=== PATIENT | female | born 1975 | race Caucasian/White ===

== ENCOUNTER → 2017-03-08 | Outpatient (REF) | payer BC, OTHER ==
[2017-03-08 13:42] LABS: MEAN CORPUSCULAR HEMOGLOBIN 38.3 pg (27.0-33.0); MEAN CORPUSCULAR VOLUME 104.8 fl (80.0-96.0); WHITE BLOOD COUNT 4.1 K/mm3 (4.0-10.0)
[2017-03-08 14:00] LABS: MEAN CORPUSCULAR HGB CONC 36.4 g/dl (32.0-36.5)
[2017-03-08 14:23] LABS: FREE T4 0.83 NG/DL (0.76-1.46)
[2017-03-08 14:35] LABS: LUTEINIZING HORMONE 1.4 mIU/mL
[2017-03-08 14:36] LABS: FOLLICLE STIMULATING HORMONE 3.1 mIU/mL
== END ==
LOC: M LAB REF 12:15
PROVIDERS: ATTEND Obstetrics & Gynecology
DX: N92.1 Excessive and frequent menstruation with irregular cycle (principal)

== ENCOUNTER → 2019-06-16 | Outpatient (CLI) | payer BC, OTHER ==
[2019-06-16 08:51] LABS: BASO % 0.4 % (0.0-1.0); EOS # 0.1 10^3/uL (0.0-0.5); EOS % 1.8 % (0.0-3.0); HEMATOCRIT 36.1 % (36.0-47.0); HEMOGLOBIN 12.9 g/dl (12.0-15.5); LYMPH # 0.8 10^3/uL (1.5-5.0); LYMPH % 28.8 % (24.0-44.0); MEAN CORPUSCULAR HEMOGLOBIN 35.3 pg (27.0-33.0); MEAN CORPUSCULAR HGB CONC 35.7 g/dl (32.0-36.5); MEAN CORPUSCULAR VOLUME 98.9 fl (80.0-96.0); MONO # 0.3 10^3/uL (0.0-0.8); MONO % 9.8 % (0.0-5.0); NEUTROPHILS # 1.7 10^3/uL (1.5-8.5); NEUTROPHILS % 59.2 % (36.0-66.0); PLATELET COUNT, AUTOMATED 123 10^3/uL (150-450); RED BLOOD COUNT 3.65 10^6/uL (4.00-5.40); WHITE BLOOD COUNT 2.9 10^3/uL (4.0-10.0)
[2019-06-16 09:19] LABS: ALBUMIN 3.9 GM/DL (3.2-5.2); ALT/SGPT 17 U/L (12-78); BILIRUBIN,TOTAL 2.2 MG/DL (0.2-1.0); BLOOD UREA NITROGEN 16 MG/DL (7-18); CALCIUM LEVEL 8.8 MG/DL (8.5-10.1); CARBON DIOXIDE LEVEL 28 MEQ/L (21-32); CHLORIDE LEVEL 107 MEQ/L (98-107); CHOLESTEROL LEVEL 201 MG/DL (<200); CHOLESTEROL RISK RATIO 2.208 (<5); CREATININE FOR GFR 0.84 MG/DL (0.55-1.30); GLOMERULAR FILTRATION RATE > 60.0 (>58); GLUCOSE, FASTING 87 MG/DL (70-100); HDL CHOLESTEROL 91 MG/DL (>40); LDL CHOLESTEROL 86 MG/DL (<100); NON-HDL-C 110 MG/DL; POTASSIUM SERUM 4.1 MEQ/L (3.5-5.1); SODIUM LEVEL 141 MEQ/L (136-145); TOTAL PROTEIN 7.1 GM/DL (6.4-8.2); TRIGLYCERIDES LEVEL 118 MG/DL (<150)
== END ==
LOC: M LAB 08:03
PROVIDERS: ATTEND Family Medicine
DX: Z00.00 Encounter for general adult medical examination without abnormal findings (principal)

== ENCOUNTER 2019-08-08 22:56 | Emergency (ER) | payer BC, OTHER ==
[~2019-08-08] VITALS: Ht 167.6 cm; Wt 63.6 kg
[2019-08-08] MEDS ORDERED: ALLE180T33 PO (23:03)
[2019-08-08] MEDS ORDERED: TOPI25TA10 (23:03)
[2019-08-08 23:14] LABS: BASO % 0.3 % (0.0-1.0); EOS # 0.1 10^3/uL (0.0-0.5); EOS % 1.7 % (0.0-3.0); HEMATOCRIT 36.1 % (36.0-47.0); HEMOGLOBIN 13.1 g/dl (12.0-15.5); LYMPH # 2.4 10^3/uL (1.5-5.0); LYMPH % 40.2 % (24.0-44.0); MEAN CORPUSCULAR HEMOGLOBIN 35.8 pg (27.0-33.0); MEAN CORPUSCULAR HGB CONC 36.3 g/dl (32.0-36.5); MEAN CORPUSCULAR VOLUME 98.6 fl (80.0-96.0); MONO # 0.6 10^3/uL (0.0-0.8); MONO % 9.5 % (0.0-5.0); NEUTROPHILS # 2.9 10^3/uL (1.5-8.5); NEUTROPHILS % 48.1 % (36.0-66.0); PLATELET COUNT, AUTOMATED 130 10^3/uL (150-450); RED BLOOD COUNT 3.66 10^6/uL (4.00-5.40)
[2019-08-08 23:28] LABS: INR 1.01
[2019-08-08 23:40] LABS: ALBUMIN 4.2 GM/DL (3.2-5.2); ALT/SGPT 27 U/L (12-78); BILIRUBIN,DIRECT 0.2 MG/DL (0.0-0.2); BILIRUBIN,TOTAL 0.9 MG/DL (0.2-1.0); CPK CREATINE PHOSPHOKINASE 296 U/L (26-192); LIPASE 268 U/L (73-393); MB/CK RELATIVE INDEX 1.35 (< OR =4); TOTAL PROTEIN 7.6 GM/DL (6.4-8.2); TROPONIN I < 0.02 NG/ML (< 0.10)
[2019-08-08] MEDS ORDERED: ASPIRIN 81 MG CHEW TABLET PO ONE (23:45)
[2019-08-08] MEDS: NITROGLYCERIN 0.4 MG SUBL TABLET SL PRN ×2 (23:51→23:57)
[2019-08-08 23:56] LABS: VENOUS BASE EXCESS -1.9 (-2.0-2.0); VENOUS HCO3 20.4 MEQ/L (23.0-27.0); VENOUS O2 SATURATION 72.1 % (60.0-80.0); VENOUS PARTIAL PRESSURE CO2 28.1 mmHg (38.0-50.0); VENOUS PARTIAL PRESSURE O2 37.2 mmHg (30.0-50.0); VENOUS PH 7.479 UNITS (7.330-7.430); VENOUS STANDARD HCO3 22.3 MEQ/L; VENOUS TOTAL CO2 21.3 MEQ/L (24.0-28.0)
[2019-08-09] MEDS: NITROGLYCERIN 0.4 MG SUBL TABLET SL PRN (00:10)
[2019-08-09] MEDS ORDERED: KETOROLAC 30 MG/ML VIAL (J1885) IV ONE (00:15)
[2019-08-09] MEDS ORDERED: ISOVUE-370 76% 100ML VIAL (Q9967) As Ordered ONE (00:18)
--- NOTE | 2019-08-09 00:50 | REPVR ---
PROCEDURE INFORMATION: Exam: CT Angiography Chest With Contrast Exam date and time: 08/09/2019 12:24 AM Clinical history: 44 years old, female; Chest pain TECHNIQUE: Imaging protocol: Computed tomographic angiography of the chest with intravenous contrast. 3D rendering: MIP reconstructed images were created and reviewed. Radiation optimization: All CT scans at this facility use at least one of these dose optimization techniques: automated exposure control; mA and/or kV adjustment per patient size (includes targeted exams where dose is matched to clinical indication); or iterative reconstruction. Contrast material: ISOVUE 370; Contrast volume: 75 ml; Contrast route: IV; COMPARISON: CR PORTABLE CHEST X-RAY 08/08/2019 11:12 PM FINDINGS: Pulmonary arteries: No focal pulmonary artery filling defect to suggest acute pulmonary embolus. Aorta: No thoracic aortic aneurysm or dissection. Thyroid: Incompletely imaged right thyroid nodule, at least 15 mm. Lungs: Pulmonary vascular/interstitial pattern does not suggest active pulmonary edema. No suspicious lung mass or air space process. No central endobronchial lesion. Pleural space: No pleural effusion or pneumothorax. Heart: No cardiac enlargement or pericardial effusion Lymph nodes: No enlarged mediastinal lymph nodes. Bones/joints: Bony structures show no acute fracture or destructive process. Soft tissues: No asymmetric abnormality of the extrathoracic soft tissues. IMPRESSION: 1. No acute pulmonary emboli or other acute thoracic abnormality. 2. Probable right thyroid nodule which can be evaluated on outpatient sonography COMMENT: In patients aged 35 years and older with an incidental thyroid nodule equal to or greater than 1.[address], MRI or extrathyroidal US, further evaluation with dedicated thyroid US is recommended for patients with normal life expectancy and without comorbidities. For smaller nodules without suspicious features, no further evaluation or follow up is recommended. Electronically signed by: Abhijit Moreira On 08/09/2019 00:49:32 AM
[2019-08-09] MEDS ORDERED: NAPR-837 PO (02:28)
[2019-08-09 02:31] VITALS: BP 102/58
[2019-08-09] MEDS ORDERED: POTASSIUM CHLORIDE 10 MEQ SR TABLET PO ONE (03:00)
--- NOTE | 2019-08-09 08:29 | REP ---
Portable chest x-ray: Single view. History: Chest pain. Findings: The lungs are well inflated and clear. Heart size is normal. Pulmonary vasculature is not increased. There is a granulomatous calcification on the left. Pleural angles are sharp. No bony abnormalities seen. Impression: No active disease. Electronically Signed by Jeremiah Mckeon MD 08/09/2019 08:19 A
--- NOTE | 2019-08-09 12:12 | ECGEPIP ---
[facility] - ED Test Date: 2019-08-08 Pat Name: KYREE QUIÑONEZ Department: Room: - Gender: Female Ibm Bpm Architect: KCJ : 1975 Requested By: ERNESTO Garcia Order Number: [id number] Reading MD: Zuly Almeida Measurements Intervals [place] Rate: 84 P: 81 DC: 145 QRS: 71 QRSD: 98 T: 57 QT: 431 QTc: 512 Interpretive Statements SINUS RHYTHM NONSPECIFIC ST & T-WAVE ABNORMALITY PROLONGED QT INTERVAL - CLINICAL CORRELATION NO PRIOR Electronically Signed on 08-09-2019 12:12:28 EST by Zuly Almeida
== END 2019-08-09 02:44 | disposition home or self-care (01) ==
LOC: M ED 22:56
DX: E87.6 Hypokalemia (principal); F45.8 Other somatoform disorders; E04.1 Nontoxic single thyroid nodule; G43.909 Migraine, unspecified, not intractable, without status migrainosus; Z88.0 Allergy status to penicillin; Z79.899 Other long term (current) drug therapy
CPT/HCPCS: 71045; 71275; 80047; 80076; 82550; 82553; 82803; 83690; 84484; 85025; 85610; 93005; 93041; 96374; 99285; J1885; Q9967

== ENCOUNTER → 2019-09-01 | Outpatient (REF) | payer OTHER ==
[~2019-09-01] MED LIST: ALLE180T33 PO; NAPR-837 PO; TOPI25TA10
== END ==
LOC: M LAB REF 18:39
PROVIDERS: ATTEND Internal Medicine Endocrinology, Diabetes & Metabolism
DX: E04.1 Nontoxic single thyroid nodule (principal)

== ENCOUNTER → 2019-09-17 | Outpatient (CLI) | payer BC, OTHER ==
[2019-09-17 16:23] LABS: BASO % 0.4 % (0.0-1.0); EOS # 0.1 10^3/uL (0.0-0.5); EOS % 1.8 % (0.0-3.0); HEMATOCRIT 34.9 % (36.0-47.0); HEMOGLOBIN 12.3 g/dl (12.0-15.5); LYMPH # 1.7 10^3/uL (1.5-5.0); LYMPH % 33.3 % (24.0-44.0); MEAN CORPUSCULAR HEMOGLOBIN 36.5 pg (27.0-33.0); MEAN CORPUSCULAR HGB CONC 35.2 g/dl (32.0-36.5); MEAN CORPUSCULAR VOLUME 103.6 fl (80.0-96.0); MONO # 0.5 10^3/uL (0.0-0.8); NEUTROPHILS # 2.8 10^3/uL (1.5-8.5); NEUTROPHILS % 55.3 % (36.0-66.0); PLATELET COUNT, AUTOMATED 121 10^3/uL (150-450); RED BLOOD COUNT 3.37 10^6/uL (4.00-5.40); WHITE BLOOD COUNT 5.1 10^3/uL (4.0-10.0)
== END ==
LOC: M LAB 15:58
PROVIDERS: ATTEND Family Medicine
DX: D72.819 Decreased white blood cell count, unspecified (principal)

== ENCOUNTER → 2019-11-12 | Outpatient (CLI) | payer BC, OTHER ==
[2019-11-12 17:51] LABS: BASO % 0.3 % (0.0-1.0); EOS # 0.1 10^3/uL (0.0-0.5); HEMATOCRIT 33.3 % (36.0-47.0); HEMOGLOBIN 11.7 g/dl (12.0-15.5); LYMPH # 1.6 10^3/uL (1.5-5.0); LYMPH % 45.5 % (24.0-44.0); MEAN CORPUSCULAR HEMOGLOBIN 35.6 pg (27.0-33.0); MEAN CORPUSCULAR HGB CONC 35.1 g/dl (32.0-36.5); MEAN CORPUSCULAR VOLUME 101.2 fl (80.0-96.0); MONO # 0.4 10^3/uL (0.0-0.8); MONO % 9.9 % (0.0-5.0); NEUTROPHILS # 1.5 10^3/uL (1.5-8.5); PLATELET COUNT, AUTOMATED 115 10^3/uL (150-450); RED BLOOD COUNT 3.29 10^6/uL (4.00-5.40); WHITE BLOOD COUNT 3.5 10^3/uL (4.0-10.0)
== END ==
LOC: M LAB 16:45
PROVIDERS: ATTEND Family Medicine
DX: D72.819 Decreased white blood cell count, unspecified (principal)

== ENCOUNTER → 2020-06-29 | Outpatient (CLI) | payer BC, OTHER ==
[2020-06-29 08:31] LABS: BASO % 0.3 % (0.0-1.0); EOS # 0.1 10^3/uL (0.0-0.5); EOS % 2.9 % (0.0-3.0); HEMATOCRIT 35.7 % (36.0-47.0); HEMOGLOBIN 12.9 g/dl (12.0-15.5); LYMPH # 1.2 10^3/uL (1.5-5.0); LYMPH % 31.5 % (24.0-44.0); MEAN CORPUSCULAR HEMOGLOBIN 36.2 pg (27.0-33.0); MEAN CORPUSCULAR HGB CONC 36.1 g/dl (32.0-36.5); MEAN CORPUSCULAR VOLUME 100.3 fl (80.0-96.0); MONO # 0.4 10^3/uL (0.0-0.8); MONO % 10.6 % (0.0-5.0); NEUTROPHILS # 2.1 10^3/uL (1.5-8.5); NEUTROPHILS % 54.4 % (36.0-66.0); PLATELET COUNT, AUTOMATED 121 10^3/uL (150-450); RED BLOOD COUNT 3.56 10^6/uL (4.00-5.40); WHITE BLOOD COUNT 3.8 10^3/uL (4.0-10.0)
== END ==
LOC: M LAB 07:10
PROVIDERS: ATTEND Family Medicine
DX: D70.9 Neutropenia, unspecified (principal)

== ENCOUNTER → 2020-08-02 | Outpatient (REF) | payer OTHER | LOC: M LAB REF 17:08 | PROVIDERS: ATTEND Internal Medicine Endocrinology, Diabetes & Metabolism | DX: E04.1 Nontoxic single thyroid nodule (principal) ==

== ENCOUNTER → 2021-06-08 | Outpatient (CLI) | payer BC ==
--- NOTE | 2021-06-08 09:01 | REPMRS ---
Patient History The patient states she had a clinical breast exam in March 2021. Patient is postmenopausal. Family history of breast cancer at age 50 or over in paternal grandmother, prostate cancer at age 65 in father. Patient states no breast complaints today. Patient has signed MRS History Sheet. Digital Woman Screen Mammo: June 08, 2021 - Exam #: [id number] Bilateral CC and MLO view(s) were taken. Technologist: Halina Car, Technologist Prior study comparison: April 07, 2020, left breast digital mammo diagnostic unilateral, performed at [facility]. March 31, 2020, bilateral digital mammo screening bilat, performed at [facility]. FINDINGS: There are scattered fibroglandular densities. Screening. Digital screening (2D) mammography was performed bilaterally in the CC and MLO projections. Additionally, breast tomosynthesis (3D mammography) was performed bilaterally in the CC and MLO projections. Todays exam was compared to the prior exam/exams. By history, the patient has no complaints of a palpable breast abnormality or other significant breast complaints. The breasts are unchanged in size and shape. There are no doroteo-soft tissue densities or spiculated masses. There is no internal architectural distortion. There are no suspicious doroteo-calcific clusters. Skin thickening or nipple retraction is not present. IMPRESSION: BI-RADS Category 2- Benign Findings. There is no evidence of malignant alteration of the breasts. Followup examination recommended in one year. The Volpara volumetric breast density category is B, there are scattered areas of fibroglandular densities. This mammogram was read with the assistance of 9DIAMOND,an FDA approved computer aided detection system for mammography. The lifetime Tyrer-Cuzick score is 14.1 % Negative x-ray reports should not delay surgical consultation if a dominant or clinically suspicious mass is present. Not all breast cancers can be identified by mammography. Therefore, we recommend that you continue to perform regular breast self-examination and physical examination and then promptly contact your physician of any concerns or changes. Adenosis and dense breasts may obscure an underlying neoplasm. Assessment: BI-RADS/ACR category 2 mammogram. Benign Findings. Recommendation Routine screening mammogram of both breasts in 1 year. Electronically Signed By: Hans Singh DO 06/08/21 0901
== END ==
LOC: M WHC 07:24
PROVIDERS: ATTEND Obstetrics & Gynecology
DX: Z12.31 Encounter for screening mammogram for malignant neoplasm of breast (principal); Z78.0 Asymptomatic menopausal state; Z80.3 Family history of malignant neoplasm of breast

== ENCOUNTER → 2022-06-11 | Outpatient (CLI) | payer BC | LOC: M WHC 08:52 | PROVIDERS: ATTEND Obstetrics & Gynecology | DX: Z12.31 Encounter for screening mammogram for malignant neoplasm of breast (principal) ==

== ENCOUNTER → 2022-10-31 | Outpatient (CLI) | payer BC, OTHER | LOC: M PLAIMG 16:46 | PROVIDERS: ATTEND Family Medicine | DX: M54.2 Cervicalgia (principal) ==

== ENCOUNTER → 2023-06-12 | Outpatient (CLI) | payer BC, OTHER | LOC: M WHC 08:36 | PROVIDERS: ATTEND Obstetrics & Gynecology | DX: Z12.31 Encounter for screening mammogram for malignant neoplasm of breast (principal) ==

== ENCOUNTER → 2024-06-15 | Outpatient (CLI) | payer BC | LOC: M WHC 07:39 | PROVIDERS: ATTEND Obstetrics & Gynecology | DX: Z12.31 Encounter for screening mammogram for malignant neoplasm of breast (principal); R92.323 Mammographic fibroglandular density, bilateral breasts ==